=== PATIENT | male | born 1965 | race African-American/Black ===

== ENCOUNTER 2017-08-06 03:49 | Emergency (ER) | payer MEDICAID ==
[~2017-08-06] VITALS: Ht 193 cm; Wt 100.0 kg
[~2017-08-06 03:49] MED LIST: AMLO10TA80 PO; LEVO500T2 PO; LOT10 PO; QUET25TA PO
[2017-08-06 04:28] VITALS: BP 145/91
== END 2017-08-06 07:45 | disposition left against medical advice (07) ==
LOC: ER 03:49
DX: Z53.21 Procedure and treatment not carried out due to patient leaving prior to being seen by health care provider (principal)

== ENCOUNTER 2018-11-04 18:03 | Emergency (ER) | payer MEDICAID ==
[~2018-11-04] VITALS: Ht 193 cm; Wt 90.0 kg
[2018-11-04] MEDS: IBUPROFEN 600MG TABLET PO ONE (22:54)
[2018-11-05 00:31] VITALS: BP 128/69
== END 2018-11-05 00:33 | disposition home or self-care (01) ==
LOC: ER 18:03
DX: S62.303A Unspecified fracture of third metacarpal bone, left hand, initial encounter for closed fracture (principal); Z79.899 Other long term (current) drug therapy; Y08.89XA Assault by other specified means, initial encounter; Y93.89 Activity, other specified; Y92.89 Other specified places as the place of occurrence of the external cause; Y99.8 Other external cause status
CPT/HCPCS: 29125; 73110; 73130; 99283

== ENCOUNTER 2018-11-19 19:58 | Emergency (ER) | payer MEDICAID ==
[~2018-11-19] VITALS: Ht 188 cm; Wt 104.0 kg
[2018-11-19] MEDS ORDERED: SODIUM CHLORIDE 0.9% 1,000 ML IV ONE (20:28)
[2018-11-19] MEDS ORDERED: MORPHINE SULFATE 4 MG/ML CPJ (NOT FOR IM USE) IV STA (20:28)
[2018-11-19] MEDS ORDERED: ONDANSETRON HCL 4MG/2ML INJ IV STA (20:28)
[2018-11-19 21:05] LABS: HEMATOCRIT. 32.4 % (42.0-52.0); HEMOGLOBIN. 10.8 g/dL (14.0-18.0); MEAN CORPUSCULAR HEMOGLOBIN 30.5 pg (28.0-32.0); MEAN CORPUSCULAR VOLUME 91.2 fL (80.0-94.0); MEAN PLATELET VOLUME 7.9 fl (7.4-10.4); PLATELET 187 x1000/uL (130-400); RED BLOOD CELL COUNT 3.55 mill/uL (4.7-6.1); RED CELL DISTRIBUTION WIDTH 14.9 % (11.6-14.6)
[2018-11-19 21:08] LABS: CHLORIDE 108 mEq/L (98-107)
[2018-11-19 21:10] LABS: PARTIAL THROMBOPLASTIN TIME 26.8 sec (23.4-31.0); PROTHROMBIN TIME 10.6 sec (9.6-11.0)
[2018-11-19 21:14] LABS: ETHANOL BLOOD < 10 mg/dL
[2018-11-19 21:24] LABS: PLATELET ESTIMATE NORMAL
[2018-11-19] MEDS ORDERED: CEFAZOLIN 1000MG PREMIX 50 ML IV ONE (22:00)
[2018-11-19 22:05] VITALS: BP 153/84
== END 2018-11-19 23:15 | disposition short-term general hospital (02) ==
LOC: ER 19:58
DX: S02.2XXA Fracture of nasal bones, initial encounter for closed fracture (principal); I10 Essential (primary) hypertension; D64.9 Anemia, unspecified; F32.9 Major depressive disorder, single episode, unspecified; Y08.89XA Assault by other specified means, initial encounter; Y93.89 Activity, other specified; Y92.89 Other specified places as the place of occurrence of the external cause; Y99.8 Other external cause status
CPT/HCPCS: 36415; 70450; 70486; 71250; 72125; 80053; 80320; 85025; 85610; 85730; 96365; 96375; 99285; J0690; J2270; J2405; J7030; G0480